=== PATIENT | female | born 1950 | race Caucasian/White ===

== ENCOUNTER 2018-10-05 10:58 | Day surgery (SDC) | payer OTHER ==
[~2018-10-05] VITALS: Ht 167.6 cm; Wt 93.4 kg
[2018-10-05 13:29] VITALS: Ht 167.6 cm; Wt 93.4 kg
[2018-10-05] MEDS ORDERED: ZANTAC DAILY (13:31)
[2018-10-05] MEDS ORDERED: HCTZ DAILY (13:31)
[2018-10-05] MEDS ORDERED: NIFEDIPINE (13:31)
[2018-10-05] MEDS ORDERED: LOSARTAN DAILY (13:31)
[2018-10-05] MEDS ORDERED: ATORVASTATIN DAILY (13:31)
[2018-10-05] MEDS ORDERED: ASPIRIN DAILY (13:31)
--- NOTE | 2018-10-05 13:39 | PREAC ---
Date/Time of Note Date/Time of Note DATE: 10/05/18 TIME: 13:36 Anesthesia Eval and Record Evaluation Time Pre-Procedure Interview DATE: 10/05/18 TIME: 13:36 Age 68 Sex female NPO: 8 hrs Preoperative diagnosis GERD, chronic diarrhea Planned procedure EGD, colonoscopy Past Medical History Past Medical History: Includes Cardio: HTN, Dyslipidemia Surgery & Anesthesia Issues No known issue Meds Anticoagulation: No Beta Leatha within 24 hr: No Reason Beta Leatha not given: Pt. not on B-Leatha Reported Medications [Aspirin Daily] No Conflict Check 10/05/18 [Atorvastatin Daily] No Conflict Check 10/05/18 [Losartan Daily] No Conflict Check 10/05/18 [Nifedipine Daily] No Conflict Check 10/05/18 [Hctz Daily] No Conflict Check 10/05/18 [Zantac Daily] No Conflict Check 10/05/18 Meds reviewed: Yes Allergies Coded Allergies: No Known Drug Allergies (Verified Allergy, Unknown, 10/05/18) Allergies Reviewed: Yes Labs/Studies Labs Reviewed: Reviewed by anesthesiologist test: N/A Studies: ECG (n/a), CXR (n/a) Pre-procedure Exam Airway: Adequate mouth opening Mallampati: Mallampati I Teeth: Normal Lung: Normal Heart: Normal ASA Physical Status ASA physical status: 2 Emergency: None Planned Pain Management Parenteral pain med, Local by surgeon Pre-operative Attestations Prior to commencing anesthesia and surgery, the patient was re-evaluated, there was verification of: *The patient's identity *The results of appropriate recent lab work and preoperative vital signs *The above evaluation not changing prior to induction *Anesthetic plan, risk benefits, alternative and complications discussed with patient/family; questions answered; patient/family understands, accepts and wi shes to proceed. NEO STOVALL MD Oct 05, 2018 13:39
[2018-10-05] MEDS ORDERED: FENTAnyl 50 MCG/ML VIAL ONE (13:41)
[2018-10-05] MEDS ORDERED: PROPOFOL 20 ML ONE ×2 (13:41→15:12)
[2018-10-05 14:49] VITALS: BP 124/64; PULSE 64; RESP 14
--- NOTE | 2018-10-05 17:11 | PAC ---
Date/Time of Note Date/Time of Note DATE: 10/05/18 TIME: 17:11 Post-Anesthesia Notes Post-Anesthesia Note Last documented vital signs Vital Signs Date Temp Pulse Resp B/P (MAP) Pulse Ox O2 O2 Flow FiO2 Time Delivery Rate 10/05/18 98.2 64 14 124/64 96 Room Air 14:49 (84) Activity: WNL Respiratory function: WNL Cardiovascular function: WNL Mental status: Baseline Pain reasonably controlled: Yes Hydration appropriate: Yes Nausea/Vomiting absent: No NEO STOVALL MD Oct 05, 2018 17:11
== END 2018-10-05 15:17 | disposition home or self-care (01) ==
LOC: GIL 10:58
PROVIDERS: ATTEND Internal Medicine Gastroenterology
DX: K64.8 Other hemorrhoids (principal); K57.30 Diverticulosis of large intestine without perforation or abscess without bleeding
CPT/HCPCS: 45378; 88305; J3010